=== PATIENT | male | born 1980 | race Caucasian/White ===

== ENCOUNTER 2022-05-11 23:12 | Emergency (ER) | payer SELFPAY ==
[~2022-05-11] VITALS: Ht 167.6 cm; Wt 68.0 kg
[2022-05-11] MEDS ORDERED: TETANUS, DIPHTHERIA, PERTUSSIS VAC/PF 0.5ML (>10YR OLD) IM ONE (23:45)
[2022-05-11] MEDS ORDERED: LIDOCAINE HCL 1% 20ML VIAL (Pyxis) INJ INFIL ONE (23:45)
[2022-05-11 23:48] VITALS: BP 117/78
== END 2022-05-12 01:05 | disposition home or self-care (01) ==
LOC: ER 23:12
DX: S01.412A Laceration without foreign body of left cheek and temporomandibular area, initial encounter (principal); Y08.89XA Assault by other specified means, initial encounter; Y93.89 Activity, other specified; Y92.018 Other place in single-family (private) house as the place of occurrence of the external cause
CPT/HCPCS: 12014; 90471; 90715; 99283